=== PATIENT | female | born 1990 | race Caucasian/White ===

== ENCOUNTER 2018-08-06 09:41 | Outpatient (CLI) | payer OTHER | END 2018-08-06 11:08 | disposition home or self-care (01) | LOC: OBT 09:41 → L-D 09:41 → OBT 11:08 | DX: O21.0 Mild hyperemesis gravidarum (principal); Z3A.37 37 weeks gestation of pregnancy | CPT/HCPCS: 76818 ==

== ENCOUNTER 2018-08-06 11:20 | Emergency (ER) | payer OTHER ==
[2018-08-06] MEDS: ONDANSETRON 4 MG INJ IV (12:28)
[2018-08-06] MEDS: ACETAMINOPHEN 500 MG TAB PO (12:28)
[2018-08-06] MEDS: SOD CHLORIDE 0.9% 1,000 ML IV (12:29)
[2018-08-06 12:48] LABS: ADD MAN DIFF? NO
[2018-08-06 12:51] LABS: WHITE BLOOD COUNT 13.9 10^3/ul (4.8-10.8)
[2018-08-06 12:51] LABS: BASOPHILS % 0.3 % (0.0-2.0); EOSINOPHILS % 0.1 % (0.0-7.0); HEMATOCRIT 36.3 % (37.0-47.0); HEMOGLOBIN 11.8 g/dl (12.0-16.0); LYMPHOCYTES # 1.5 10^3/ul (0.8-2.9); LYMPHOCYTES % 11.1 % (15.0-51.0); MEAN CORPUSCULAR HEMOGLOBIN 27.3 pg (29.0-33.0); MEAN CORPUSCULAR HGB CONC 32.5 g/dl (32.0-37.0); MEAN PLATELET VOLUME 10.2 fl (7.4-10.4); MONOCYTE # 0.8 10^3/ul (0.3-0.9); MONOCYTES % 5.6 % (0.0-11.0); NEUTROPHIL # 11.5 10^3/ul (1.6-7.5); NEUTROPHILS % 82.6 % (39.0-77.0); PLATELET COUNT 279 10^3/UL (140-415); RED BLOOD COUNT 4.32 10^6/ul (4.20-5.40); RED CELL DISTRIBUTION WIDTH 13.6 % (11.5-14.5)
[2018-08-06 12:56] LABS: ADD UMIC YES; UR ASCORBIC ACID NEGATIVE (NEGATIVE); UR BACTERIA FEW /HPF (NONE SEEN); UR BILIRUBIN (Dip) NEGATIVE (NEGATIVE); UR BLOOD (Dip) NEGATIVE (NEGATIVE); UR CLARITY SLIGHTLY CLOUDY (CLEAR); UR COLOR YELLOW (YELLOW); UR GLUCOSE (Dip) NEGATIVE (NEGATIVE); UR KETONES (Dip) NEGATIVE (NEGATIVE); UR LEUKOCYTE ESTERASE (Dip) 2+ Leu/ul (NEGATIVE); UR MUCUS FEW /HPF (NONE SEEN); UR NITRITE (Dip) NEGATIVE (NEGATIVE); UR RBC 0 /HPF (0-5); UR SPECIFIC GRAVITY (Dip) 1.011 (1.003-1.030); UR SQUAMOUS EPITHELIAL CELL FEW /HPF (FEW); UR TOTAL PROTEIN (Dip) NEGATIVE (NEGATIVE); UR UROBILINOGEN (Dip) NEGATIVE (NEGATIVE); UR WBC 5 /HPF (0-5)
[2018-08-06 13:08] LABS: ALANINE AMINOTRANSFERASE 36 IU/L (13-69); ALBUMIN 3.2 g/dl (3.3-4.9); ALBUMIN/GLOBULIN RATIO 0.86; ALKALINE PHOSPHATASE 118 IU/L (42-121); ANION GAP 13 (8-16); ASPARTATE AMINO TRANSFERASE 26 IU/L (15-46); BILIRUBIN,INDIRECT 0.3 mg/dl (0-1.1); BILIRUBIN,TOTAL 0.3 mg/dl (0.2-1.3); BLOOD UREA NITROGEN 7 mg/dl (7-20); CALCIUM 9.6 mg/dl (8.4-10.2); CARBON DIOXIDE 25 mmol/L (21-31); CHLORIDE 103 mmol/L (97-110); CREATININE 0.62 mg/dl (0.44-1.00); GLUCOSE 96 mg/dl (70-220); LIPASE 79 U/L (23-300); POTASSIUM 4.2 mmol/L (3.5-5.1); SODIUM 137 mmol/L (135-144); TOTAL PROTEIN 6.9 g/dl (6.1-8.1)
[2018-08-06] MEDS: CEPHALEXIN 500 MG CAP PO (13:34)
== END 2018-08-06 13:44 | disposition home or self-care (01) ==
LOC: FTE 11:20
DX: O23.43 Unspecified infection of urinary tract in pregnancy, third trimester (principal); R19.7 Diarrhea, unspecified; Z3A.37 37 weeks gestation of pregnancy
CPT/HCPCS: 36415; 80053; 81001; 83690; 85025; 96361; 96374; 99284-25

== ENCOUNTER 2018-08-07 13:56 | Inpatient (IN) | payer OTHER ==
[2018-08-07] MEDS: LACTATED RINGER'S 1,000 ML IV (15:24)
[2018-08-07] MEDS: TERBUTALINE 1 MG/ML INJ SC ×2 (15:25→16:56)
[2018-08-07 16:46] LABS: ADD UMIC YES; UR ASCORBIC ACID NEGATIVE (NEGATIVE); UR BILIRUBIN (Dip) NEGATIVE (NEGATIVE); UR BLOOD (Dip) NEGATIVE (NEGATIVE); UR CLARITY SLIGHTLY CLOUDY (CLEAR); UR COLOR YELLOW (YELLOW); UR GLUCOSE (Dip) NEGATIVE (NEGATIVE); UR KETONES (Dip) 1+ mg/dL (NEGATIVE); UR LEUKOCYTE ESTERASE (Dip) 2+ Leu/ul (NEGATIVE); UR MUCUS MODERATE /HPF (NONE SEEN); UR NITRITE (Dip) NEGATIVE (NEGATIVE); UR RBC 1 /HPF (0-5); UR SPECIFIC GRAVITY (Dip) 1.016 (1.003-1.030); UR SQUAMOUS EPITHELIAL CELL FEW /HPF (FEW); UR TOTAL PROTEIN (Dip) NEGATIVE (NEGATIVE); UR UROBILINOGEN (Dip) 1+ mg/dL (NEGATIVE); UR WBC 5 /HPF (0-5)
[2018-08-07] MEDS: SOD CHLORIDE 0.9% 1,000 ML IV ×2 (17:45→21:52)
[2018-08-07] MEDS: OXYCODONE/ACETAMINOPHEN (5/325) TAB PO (17:46)
[2018-08-07] MEDS: CEFTRIAXONE 2 GM/50 ML (PMX) 50 ML IVPB (17:46)
[2018-08-07] MEDS: DIPHENHYDRAMINE 50 MG CAP PO (21:52)
[2018-08-07] MEDS: MEPERIDINE 50 MG INJ IM (21:55)
[2018-08-07] MEDS: MEPERIDINE 25 MG INJ IV (21:58)
[2018-08-07 23:33] LABS: ADD MAN DIFF? NO
[2018-08-07 23:38] LABS: WHITE BLOOD COUNT 15.8 10^3/ul (4.8-10.8)
[2018-08-07 23:38] LABS: BASOPHILS % 0.1 % (0.0-2.0); HEMOGLOBIN 10.9 g/dl (12.0-16.0); LYMPHOCYTES # 1.1 10^3/ul (0.8-2.9); MEAN CORPUSCULAR HEMOGLOBIN 27.2 pg (29.0-33.0); MEAN CORPUSCULAR HGB CONC 32.1 g/dl (32.0-37.0); MEAN CORPUSCULAR VOLUME 84.8 fl (82.0-101.0); MEAN PLATELET VOLUME 9.7 fl (7.4-10.4); MONOCYTE # 0.7 10^3/ul (0.3-0.9); MONOCYTES % 4.2 % (0.0-11.0); NEUTROPHIL # 13.9 10^3/ul (1.6-7.5); NEUTROPHILS % 88.2 % (39.0-77.0); PLATELET COUNT 247 10^3/UL (140-415); RED BLOOD COUNT 4.01 10^6/ul (4.20-5.40); RED CELL DISTRIBUTION WIDTH 13.9 % (11.5-14.5)
[2018-08-07 23:52] LABS: ALANINE AMINOTRANSFERASE 34 IU/L (13-69); ALBUMIN 2.9 g/dl (3.3-4.9); ALBUMIN/GLOBULIN RATIO 0.85; ALKALINE PHOSPHATASE 102 IU/L (42-121); ANION GAP 11 (8-16); ASPARTATE AMINO TRANSFERASE 18 IU/L (15-46); BILIRUBIN,INDIRECT 0.4 mg/dl (0-1.1); BILIRUBIN,TOTAL 0.4 mg/dl (0.2-1.3); BLOOD UREA NITROGEN 4 mg/dl (7-20); CALCIUM 9.2 mg/dl (8.4-10.2); CARBON DIOXIDE 24 mmol/L (21-31); CHLORIDE 105 mmol/L (97-110); CREATININE 0.52 mg/dl (0.44-1.00); GLUCOSE 106 mg/dl (70-220); POTASSIUM 3.7 mmol/L (3.5-5.1); SODIUM 136 mmol/L (135-144); TOTAL PROTEIN 6.3 g/dl (6.1-8.1)
[2018-08-08] MEDS: metroNIDAZOLE 500 MG/NS (PMX) 100 ML IVPB ×3 (03:06→18:37)
[2018-08-08] MEDS: ACETAMINOPHEN 325 MG TAB PO (03:39)
[2018-08-08] MEDS: CEFTRIAXONE 1 GM/50 ML (PMX) 50 ML IVPB ×2 (06:02→17:30)
[2018-08-08] MEDS: DOCUSATE SODIUM 100 MG CAP PO (09:14)
[2018-08-08] MEDS: PRENATAL VITAMIN PO (09:14)
[2018-08-08] MEDS: BUTORPHANOL 2 MG INJ IV ×3 (13:19→21:58)
[2018-08-08] MEDS: SOD CHLORIDE 0.9% 1,000 ML IV ×3 (13:19→21:43)
[2018-08-08] MEDS: ONDANSETRON 4 MG INJ IV (20:34)
[2018-08-09] MEDS: metroNIDAZOLE 500 MG/NS (PMX) 100 ML IVPB ×2 (03:24→12:14)
[2018-08-09] MEDS: BUTORPHANOL 2 MG INJ IV ×4 (03:25→21:32)
[2018-08-09] MEDS: SOD CHLORIDE 0.9% 1,000 ML IV (06:45)
[2018-08-09] MEDS: CEFTRIAXONE 1 GM/50 ML (PMX) 50 ML IVPB (06:57)
[2018-08-09] MEDS: ONDANSETRON 4 MG INJ IV ×2 (08:54→18:38)
[2018-08-09] MEDS: PRENATAL VITAMIN PO (12:13)
[2018-08-09 13:58] LABS: ADD UMIC YES; UR ASCORBIC ACID NEGATIVE (NEGATIVE); UR BACTERIA FEW /HPF (NONE SEEN); UR BILIRUBIN (Dip) NEGATIVE (NEGATIVE); UR BLOOD (Dip) NEGATIVE (NEGATIVE); UR CLARITY SLIGHTLY CLOUDY (CLEAR); UR COLOR YELLOW (YELLOW); UR GLUCOSE (Dip) NEGATIVE (NEGATIVE); UR KETONES (Dip) 2+ mg/dL (NEGATIVE); UR LEUKOCYTE ESTERASE (Dip) TRACE Leu/ul (NEGATIVE); UR MUCUS FEW /HPF (NONE SEEN); UR NITRITE (Dip) NEGATIVE (NEGATIVE); UR RBC 1 /HPF (0-5); UR SPECIFIC GRAVITY (Dip) 1.024 (1.003-1.030); UR SQUAMOUS EPITHELIAL CELL MODERATE /HPF (FEW); UR TOTAL PROTEIN (Dip) 1+ mg/dl (NEGATIVE); UR UROBILINOGEN (Dip) 1+ mg/dL (NEGATIVE); UR WBC 2 /HPF (0-5)
[2018-08-09] MEDS: DEXTROSE 5%-LR 1,000 ML IV ×2 (16:08→23:34)
[2018-08-09 16:11] LABS: ADD MAN DIFF? NO; BASOPHILS % 0.3 % (0.0-2.0); EOSINOPHILS % 0.2 % (0.0-7.0); HEMOGLOBIN 10.9 g/dl (12.0-16.0); LYMPHOCYTES # 1.1 10^3/ul (0.8-2.9); LYMPHOCYTES % 9.1 % (15.0-51.0); MEAN CORPUSCULAR HEMOGLOBIN 27.6 pg (29.0-33.0); MEAN CORPUSCULAR HGB CONC 32.1 g/dl (32.0-37.0); MEAN CORPUSCULAR VOLUME 86.1 fl (82.0-101.0); MEAN PLATELET VOLUME 10.5 fl (7.4-10.4); MONOCYTE # 0.6 10^3/ul (0.3-0.9); MONOCYTES % 5.2 % (0.0-11.0); NEUTROPHIL # 10.3 10^3/ul (1.6-7.5); PLATELET COUNT 279 10^3/UL (140-415); RED BLOOD COUNT 3.95 10^6/ul (4.20-5.40); RED CELL DISTRIBUTION WIDTH 14.2 % (11.5-14.5)
[2018-08-09 16:11] LABS: WHITE BLOOD COUNT 12.1 10^3/ul (4.8-10.8)
[2018-08-09 16:14] LABS: INR 0.97
[2018-08-09 16:20] LABS: ALANINE AMINOTRANSFERASE 27 IU/L (13-69); ALBUMIN 2.6 g/dl (3.3-4.9); ALBUMIN/GLOBULIN RATIO 0.78; ALKALINE PHOSPHATASE 112 IU/L (42-121); ANION GAP 13 (8-16); ASPARTATE AMINO TRANSFERASE 17 IU/L (15-46); BILIRUBIN,INDIRECT 0.2 mg/dl (0-1.1); BILIRUBIN,TOTAL 0.2 mg/dl (0.2-1.3); BLOOD UREA NITROGEN 10 mg/dl (7-20); CALCIUM 9.3 mg/dl (8.4-10.2); CARBON DIOXIDE 20 mmol/L (21-31); CHLORIDE 108 mmol/L (97-110); CREATININE 0.62 mg/dl (0.44-1.00); GLUCOSE 75 mg/dl (70-220); POTASSIUM 3.8 mmol/L (3.5-5.1); SODIUM 137 mmol/L (135-144); TOTAL PROTEIN 5.9 g/dl (6.1-8.1)
[2018-08-09 16:50] LABS: HEPATITIS B SURFACE ANTIGEN NEGATIVE (NEGATIVE)
[2018-08-09] MEDS: DOCUSATE SODIUM 100 MG CAP PO (17:47)
[2018-08-09] MEDS: PIPER-TAZO 3.375 GM IV (PMX) 100 ML IVPB (18:33)
[2018-08-10] MEDS: PIPER-TAZO 3.375 GM IV (PMX) 100 ML IVPB ×4 (00:03→17:56)
[2018-08-10] MEDS: ONDANSETRON 4 MG INJ IV ×5 (00:04→20:38)
[2018-08-10 06:04] LABS: ADD MAN DIFF? NO
[2018-08-10 06:11] LABS: BASOPHILS % 0.3 % (0.0-2.0); EOSINOPHILS % 0.2 % (0.0-7.0); HEMATOCRIT 37.1 % (37.0-47.0); HEMOGLOBIN 11.9 g/dl (12.0-16.0); LYMPHOCYTES # 0.9 10^3/ul (0.8-2.9); MEAN CORPUSCULAR HEMOGLOBIN 27.1 pg (29.0-33.0); MEAN CORPUSCULAR HGB CONC 32.1 g/dl (32.0-37.0); MEAN CORPUSCULAR VOLUME 84.5 fl (82.0-101.0); MEAN PLATELET VOLUME 10.3 fl (7.4-10.4); MONOCYTE # 0.6 10^3/ul (0.3-0.9); MONOCYTES % 4.4 % (0.0-11.0); NEUTROPHIL # 11.2 10^3/ul (1.6-7.5); NEUTROPHILS % 87.6 % (39.0-77.0); PLATELET COUNT 315 10^3/UL (140-415); RED BLOOD COUNT 4.39 10^6/ul (4.20-5.40); RED CELL DISTRIBUTION WIDTH 14.2 % (11.5-14.5)
[2018-08-10 06:11] LABS: WHITE BLOOD COUNT 12.8 10^3/ul (4.8-10.8)
[2018-08-10] MEDS: BUTORPHANOL 2 MG INJ IV ×2 (06:16→10:05)
[2018-08-10 06:36] LABS: ANION GAP 13 (8-16); BLOOD UREA NITROGEN 11 mg/dl (7-20); CALCIUM 8.9 mg/dl (8.4-10.2); CARBON DIOXIDE 21 mmol/L (21-31); CHLORIDE 107 mmol/L (97-110); CREATININE 0.66 mg/dl (0.44-1.00); GLUCOSE 111 mg/dl (70-220); MAGNESIUM 1.8 mg/dl (1.7-2.5); PHOSPHORUS 3.4 mg/dl (2.5-4.9); POTASSIUM 3.5 mmol/L (3.5-5.1); SODIUM 137 mmol/L (135-144)
[2018-08-10] MEDS: DEXTROSE 5%-LR 1,000 ML IV ×2 (08:50→17:25)
[2018-08-10] MEDS: DOCUSATE SODIUM 100 MG CAP PO (09:23)
[2018-08-10] MEDS: PRENATAL VITAMIN PO (10:21)
[2018-08-10] MEDS ORDERED: morphine 2 MG INJ IV (10:30)
[2018-08-10 14:58] LABS: RAPID PLASMA REAGIN NONREACTIVE (NR)
[2018-08-10] MEDS: morphine 2 MG INJ IV (19:51)
[2018-08-10] MEDS: METOCLOPRAMIDE 10 MG INJ IV (23:08)
[2018-08-10] MEDS: LACTATED RINGER'S 1,000 ML IV (23:09)
[2018-08-11] MEDS: PIPER-TAZO 3.375 GM IV (PMX) 100 ML IVPB ×4 (00:16→18:32)
[2018-08-11] MEDS: DEXTROSE 5%-LR 1,000 ML IV ×3 (03:12→13:55)
[2018-08-11] MEDS: BISACODYL 10 MG SUPP PR (03:29)
[2018-08-11] MEDS: ONDANSETRON 4 MG INJ IV ×2 (03:44→15:10)
[2018-08-11] MEDS: ACETAMINOPHEN 1000MG/100ML IV 100 ML IVPB ×3 (03:45→22:30)
[2018-08-11 05:55] LABS: ADD MAN DIFF? NO
[2018-08-11 06:20] LABS: ALANINE AMINOTRANSFERASE 32 IU/L (13-69); ALBUMIN 2.3 g/dl (3.3-4.9); ALBUMIN/GLOBULIN RATIO 0.74; ALKALINE PHOSPHATASE 98 IU/L (42-121); ANION GAP 12 (8-16); ASPARTATE AMINO TRANSFERASE 19 IU/L (15-46); BILIRUBIN,INDIRECT 0.4 mg/dl (0-1.1); BILIRUBIN,TOTAL 0.4 mg/dl (0.2-1.3); BLOOD UREA NITROGEN 12 mg/dl (7-20); CALCIUM 8.7 mg/dl (8.4-10.2); CARBON DIOXIDE 24 mmol/L (21-31); CHLORIDE 105 mmol/L (97-110); CREATININE 0.71 mg/dl (0.44-1.00); GLUCOSE 109 mg/dl (70-220); POTASSIUM 3.3 mmol/L (3.5-5.1); SODIUM 138 mmol/L (135-144); TOTAL PROTEIN 5.4 g/dl (6.1-8.1)
[2018-08-11] MEDS: DOCUSATE SODIUM 100 MG CAP PO (09:31)
[2018-08-11] MEDS: PRENATAL VITAMIN PO (09:41)
[2018-08-11 11:47] LABS: BASOPHILS % 0.3 % (0.0-2.0); EOSINOPHILS % 0.4 % (0.0-7.0); HEMATOCRIT 33.7 % (37.0-47.0); HEMOGLOBIN 10.7 g/dl (12.0-16.0); LYMPHOCYTES # 1.1 10^3/ul (0.8-2.9); LYMPHOCYTES % 11.4 % (15.0-51.0); MEAN CORPUSCULAR HEMOGLOBIN 27.3 pg (29.0-33.0); MEAN CORPUSCULAR HGB CONC 31.8 g/dl (32.0-37.0); MEAN PLATELET VOLUME 10.1 fl (7.4-10.4); MONOCYTE # 0.7 10^3/ul (0.3-0.9); MONOCYTES % 6.8 % (0.0-11.0); NEUTROPHIL # 7.8 10^3/ul (1.6-7.5); NEUTROPHILS % 80.7 % (39.0-77.0); PLATELET COUNT 290 10^3/UL (140-415); RED BLOOD COUNT 3.92 10^6/ul (4.20-5.40); RED CELL DISTRIBUTION WIDTH 14.4 % (11.5-14.5)
[2018-08-11 11:47] LABS: WHITE BLOOD COUNT 9.7 10^3/ul (4.8-10.8)
[2018-08-11] MEDS ORDERED: MAGNESIUM SULFATE 4 GM/100 ML 100 ML ×2 (18:15→18:16)
[2018-08-11] MEDS: LACTATED RINGER'S 1,000 ML IV (19:54)
[2018-08-12] MEDS: PIPER-TAZO 3.375 GM IV (PMX) 100 ML IVPB ×4 (00:12→18:31)
[2018-08-12] MEDS: ACETAMINOPHEN 1000MG/100ML IV 100 ML IVPB (04:05)
[2018-08-12] MEDS: BISACODYL 10 MG SUPP PR (04:22)
[2018-08-12] MEDS: LACTATED RINGER'S 1,000 ML IV ×3 (04:23→22:34)
[2018-08-12] MEDS: BUTORPHANOL 2 MG INJ IV ×3 (08:10→19:44)
[2018-08-12] MEDS: PRENATAL VITAMIN PO (09:00)
[2018-08-12] MEDS: DEXTROSE 5%-LR 1,000 ML IV ×3 (12:21→21:29)
[2018-08-12] MEDS: ONDANSETRON 4 MG INJ IV (19:44)
[2018-08-12] MEDS: DOCUSATE SODIUM 100 MG CAP PO (19:44)
[2018-08-13] MEDS: PIPER-TAZO 3.375 GM IV (PMX) 100 ML IVPB ×5 (00:40→23:50)
[2018-08-13] MEDS: ONDANSETRON 4 MG INJ IV ×4 (00:46→18:12)
[2018-08-13] MEDS: BUTORPHANOL 2 MG INJ IV ×3 (01:01→14:13)
[2018-08-13] MEDS: DEXTROSE 5%-LR 1,000 ML IV ×3 (01:06→15:18)
[2018-08-13] MEDS: ACETAMINOPHEN 1000MG/100ML IV 100 ML IVPB ×2 (03:59→17:00)
[2018-08-13] MEDS: LACTATED RINGER'S 1,000 ML IV ×4 (04:00→21:16)
[2018-08-13] MEDS ORDERED: DEXTROSE 5%-LR 1,000 ML IV (07:00)
[2018-08-13] MEDS: PRENATAL VITAMIN PO (09:00)
[2018-08-13] MEDS: DOCUSATE SODIUM 100 MG CAP PO (10:19)
[2018-08-13] MEDS ORDERED: MISOPROSTOL 200 MCG TAB PR (19:30)
[2018-08-13] MEDS ORDERED: OXYTOCIN 30 UNITS/LR 500 ML IV ×3 (19:30)
[2018-08-13] MEDS ORDERED: IBUPROFEN 600 MG TAB PO (19:30)
[2018-08-13] MEDS ORDERED: OXYCODONE/ASPIRIN (4.88/325) TAB PO (19:30)
[2018-08-13] MEDS ORDERED: LIDOCAINE 1% (MPF) 30 ML INJ INJ (19:30)
[2018-08-13] MEDS ORDERED: METHYLERGONOVINE 0.2 MG INJ IM (19:30)
[2018-08-13] MEDS ORDERED: CARBOPROST 250 MCG INJ IM (19:30)
[2018-08-13 19:43] LABS: ADD MAN DIFF? NO
[2018-08-13 19:45] LABS: BASOPHILS % 0.2 % (0.0-2.0); EOSINOPHILS % 0.3 % (0.0-7.0); HEMATOCRIT 32.9 % (37.0-47.0); HEMOGLOBIN 10.7 g/dl (12.0-16.0); LYMPHOCYTES # 1.1 10^3/ul (0.8-2.9); LYMPHOCYTES % 10.4 % (15.0-51.0); MEAN CORPUSCULAR HEMOGLOBIN 27.4 pg (29.0-33.0); MEAN CORPUSCULAR HGB CONC 32.5 g/dl (32.0-37.0); MEAN CORPUSCULAR VOLUME 84.4 fl (82.0-101.0); MEAN PLATELET VOLUME 9.4 fl (7.4-10.4); MONOCYTE # 0.6 10^3/ul (0.3-0.9); MONOCYTES % 5.7 % (0.0-11.0); NEUTROPHIL # 8.8 10^3/ul (1.6-7.5); NEUTROPHILS % 82.5 % (39.0-77.0); PLATELET COUNT 265 10^3/UL (140-415); RED CELL DISTRIBUTION WIDTH 14.3 % (11.5-14.5)
[2018-08-13 19:45] LABS: WHITE BLOOD COUNT 10.7 10^3/ul (4.8-10.8)
[2018-08-13 20:05] LABS: INR 0.94; PROTIME 12.7 Sec (11.9-14.9)
[2018-08-13 20:06] LABS: PARTIAL THROMBOPLASTIN TIME 34.5 Sec (23.0-35.0)
[2018-08-13] MEDS ORDERED: NALOXONE (0.4 MG/ML) INJ IV (21:30)
[2018-08-13 22:06] LABS: HEPATITIS B SURFACE ANTIGEN POSITIVE (NEGATIVE)
[2018-08-13] MEDS: FENTAnyl 2MCG/ML-ROPIV 0.2% 100 ML BAG EPI (22:33)
[2018-08-14] MEDS: DEXTROSE 5%-LR 1,000 ML IV
[2018-08-14 00:42] LABS: HEPATITIS C VIRAL ANTIBODY NEGATIVE (NEGATIVE); HIV 1&2 ANTIBODY NEGATIVE (NEGATIVE)
[2018-08-14 02:54] LABS: HEPATITIS B SURFACE ANTIGEN POSITIVE (NEGATIVE)
[2018-08-14] MEDS: FENTAnyl 2MCG/ML-ROPIV 0.2% 100 ML BAG EPI (03:54)
[2018-08-14] MEDS: LACTATED RINGER'S 1,000 ML IV (06:15)
[2018-08-14 06:58] LABS: ALANINE AMINOTRANSFERASE 35 IU/L (13-69); ALBUMIN 2.7 g/dl (3.3-4.9); ALBUMIN/GLOBULIN RATIO 0.93; ALKALINE PHOSPHATASE 128 IU/L (42-121); ANION GAP 10 (8-16); ASPARTATE AMINO TRANSFERASE 39 IU/L (15-46); BILIRUBIN,INDIRECT 0.2 mg/dl (0-1.1); BILIRUBIN,TOTAL 0.2 mg/dl (0.2-1.3); BLOOD UREA NITROGEN 8 mg/dl (7-20); CALCIUM 8.4 mg/dl (8.4-10.2); CARBON DIOXIDE 24 mmol/L (21-31); CHLORIDE 108 mmol/L (97-110); CREATININE 1.02 mg/dl (0.44-1.00); GLUCOSE 66 mg/dl (70-220); POTASSIUM 3.4 mmol/L (3.5-5.1); SODIUM 139 mmol/L (135-144); TOTAL PROTEIN 5.6 g/dl (6.1-8.1)
[2018-08-14] MEDS: ONDANSETRON 4 MG INJ IV (07:50)
[2018-08-14] MEDS: OXYTOCIN 30 UNITS/LR 500 ML IV ×3 (11:47→17:25)
[2018-08-14] MEDS ORDERED: ONDANSETRON 4 MG INJ IV (14:00)
[2018-08-14] MEDS ORDERED: HYDROCODONE/APAP (5/325) TAB PO (14:00)
[2018-08-14] MEDS ORDERED: OXYCODONE/ASPIRIN (4.88/325) TAB PO (14:00)
[2018-08-14] MEDS ORDERED: ACETAMINOPHEN 325 MG TAB PO (14:00)
[2018-08-14] MEDS ORDERED: DIBUCAINE 1% 30 GM OINT PR (14:00)
[2018-08-14] MEDS: HYDROCODONE/APAP (5/325) TAB PO (14:06)
[2018-08-14] MEDS: BENZOCAINE 20% 56 ML SPRAY TOP (14:08)
[2018-08-14] MEDS: WITCH HAZEL/GLYCERIN PAD PR (14:08)
[2018-08-14] MEDS: LANOLIN 7 GM TUBE TOP (14:08)
[2018-08-14 16:51] LABS: RAPID PLASMA REAGIN NONREACTIVE (NR)
[2018-08-14] MEDS: IBUPROFEN 600 MG TAB PO ×2 (18:27→23:35)
[2018-08-14] MEDS: SENNA/DOCUSATE NA (8.6MG/50MG) TAB PO (21:00)
[2018-08-15] MEDS: IBUPROFEN 600 MG TAB PO ×3 (05:58→17:43)
[2018-08-15 07:42] LABS: ADD MAN DIFF? NO
[2018-08-15 07:48] LABS: BASOPHILS % 0.2 % (0.0-2.0); EOSINOPHILS % 0.3 % (0.0-7.0); HEMOGLOBIN 9.7 g/dl (12.0-16.0); LYMPHOCYTES # 1.1 10^3/ul (0.8-2.9); LYMPHOCYTES % 8.7 % (15.0-51.0); MEAN CORPUSCULAR HEMOGLOBIN 27.3 pg (29.0-33.0); MEAN CORPUSCULAR HGB CONC 32.3 g/dl (32.0-37.0); MEAN CORPUSCULAR VOLUME 84.5 fl (82.0-101.0); MEAN PLATELET VOLUME 9.2 fl (7.4-10.4); MONOCYTE # 0.6 10^3/ul (0.3-0.9); MONOCYTES % 4.8 % (0.0-11.0); NEUTROPHIL # 10.8 10^3/ul (1.6-7.5); NEUTROPHILS % 85.4 % (39.0-77.0); PLATELET COUNT 269 10^3/UL (140-415); RED BLOOD COUNT 3.55 10^6/ul (4.20-5.40); RED CELL DISTRIBUTION WIDTH 14.7 % (11.5-14.5)
[2018-08-15 07:48] LABS: WHITE BLOOD COUNT 12.6 10^3/ul (4.8-10.8)
[2018-08-15] MEDS: SENNA/DOCUSATE NA (8.6MG/50MG) TAB PO ×2 (09:07→21:00)
[2018-08-15] MEDS: OXYCODONE/ASPIRIN (4.88/325) TAB PO (09:07)
[2018-08-16] MEDS: IBUPROFEN 600 MG TAB PO ×3 (00:03→11:13)
[2018-08-16] MEDS: SENNA/DOCUSATE NA (8.6MG/50MG) TAB PO (08:40)
[2018-08-16] MEDS: MEASLES,MUMPS,RUBELLA VACCINE INJ SC* (11:14)
[2018-08-16 21:21] LABS: HEPATITIS B SURFACE ANTIGEN REACTIVE (NON-REACTIVE)
== END 2018-08-16 12:32 | disposition home or self-care (01) | DRG 806 ==
LOC: OBT 13:56 → L-D 08-09 11:30 → PP1 08-14 13:07 → L-D 13:56 → OBT 14:40 → L-D 08-13 18:50
PROC: 10E0XZZ Delivery of Products of Conception, External Approach (ICD-10-PCS; principal; 2018-08-13)
PROC: 3E033VJ Introduction of Other Hormone into Peripheral Vein, Percutaneous Approach (ICD-10-PCS; 2018-08-13)
DX: O99.62 Diseases of the digestive system complicating childbirth (principal); K80.00 Calculus of gallbladder with acute cholecystitis without obstruction; Z37.0 Single live birth; Z3A.37 37 weeks gestation of pregnancy
CPT/HCPCS: 36415; 62319; 76705; 76818; 80048; 80053; 81001; 83735; 84100; 85025; 85610; 85730; 86592; 86703; 86704; 86803; 86850; 86900; 86901; 87086; 87340; 88307; 96360; 96361; 96365; 96372; 96374

== ENCOUNTER 2019-01-06 06:35 | Day surgery (SDC) | payer OTHER ==
[~2019-01-06 06:35] MED LIST: CEFAZOLIN 2 GM/50 ML (PMX) 50 ML IVPB; SOD CHLORIDE 0.9% 1,000 ML IV
[2019-01-06] MEDS ORDERED: PROPOFOL 100 ML (09:21)
[2019-01-06] MEDS ORDERED: CEFAZOLIN 1 GM INJ (09:40)
[2019-01-06] MEDS ORDERED: LIDOCAINE 2% (SDV) 5 ML INJ (09:40)
[2019-01-06] MEDS ORDERED: ROCURONIUM 50 MG INJ (09:40)
[2019-01-06] MEDS ORDERED: DEXAMETHASONE 4 MG/ML 1 ML INJ (09:47)
[2019-01-06] MEDS ORDERED: ONDANSETRON 4 MG INJ (09:48)
[2019-01-06] MEDS ORDERED: LABETALOL HCL 20MG INJ (09:55)
[2019-01-06] MEDS: BUPIVACAINE 0.25% (MPF) 30 ML INJ (10:00)
[2019-01-06] MEDS ORDERED: GLYCOPYRROLATE 0.4 MG INJ (10:08)
[2019-01-06] MEDS ORDERED: NEOSTIGMINE 10 MG INJ (10:08)
[2019-01-06] MEDS ORDERED: HYDROmorphONE 1 MG/5 ML IV SYRINGE IV ×2 (10:28→10:30)
[2019-01-06] MEDS ORDERED: DIPHENHYDRAMINE 50 MG INJ IV (10:30)
[2019-01-06] MEDS ORDERED: MEPERIDINE 25 MG INJ IV (10:30)
[2019-01-06] MEDS ORDERED: FENTAnyl 50 MCG/ML VIAL IV (10:30)
[2019-01-06] MEDS ORDERED: OXYCODONE/ACETAMINOPHEN (5/325) TAB PO ×2 (10:30)
[2019-01-06] MEDS ORDERED: hydrALAzine 20 MG INJ IV (10:30)
[2019-01-06] MEDS ORDERED: METOCLOPRAMIDE 10 MG INJ IV (10:30)
[2019-01-06] MEDS ORDERED: KETOROLAC 30 MG INJ IV (10:30)
[2019-01-06] MEDS ORDERED: EPHEDrine SULFATE 50 MG/5 ML SYG IV (10:30)
[2019-01-06] MEDS ORDERED: ALBUTEROL 0.083% (NEB) 2.5 MG/3 ML AMP HHN (10:30)
[2019-01-06] MEDS: HYDROmorphONE 1 MG/5 ML IV SYRINGE IV ×2 (10:30→10:38)
[2019-01-06] MEDS ORDERED: LABETALOL HCL 20MG INJ IV (10:30)
[2019-01-06] MEDS: ONDANSETRON 4 MG INJ IV (10:40)
[2019-01-06] MEDS: FENTAnyl 50 MCG/ML VIAL IV ×2 (10:44→11:05)
[2019-01-06] MEDS: HYDROCODONE/APAP (5/325) TAB PO (12:21)
== END 2019-01-06 12:45 | disposition home or self-care (01) ==
LOC: SDS 06:35
DX: K80.10 Calculus of gallbladder with chronic cholecystitis without obstruction (principal); E66.9 Obesity, unspecified; Z68.36 Body mass index [BMI] 36.0-36.9, adult
CPT/HCPCS: 47562; 84703; 88304